=== PATIENT | female | born 1950 | race Caucasian/White ===

== ENCOUNTER 2019-03-11 08:46 | Outpatient (CLI) | payer MEDICARE, OTHER | END 2019-03-11 08:47 | disposition home or self-care (01) | LOC: RT 08:46 | PROVIDERS: ATTEND Orthopaedic Surgery Foot and Ankle Surgery | DX: Z01.810 Encounter for preprocedural cardiovascular examination (principal) | CPT/HCPCS: 93005 ==

== ENCOUNTER 2019-08-07 08:00 | Outpatient (CLI) | payer MEDICARE, OTHER ==
[2019-08-07 12:04] LABS: BASOPHILS % (AUTO) 0.9 %; EOSINOPHILS # (AUTO) 0.3 10^3/uL (0.0-0.7); EOSINOPHILS % (AUTO) 5.7 %; LYMPHOCYTES # (AUTO) 1.7 10^3/uL (1.5-3.5); LYMPHOCYTES % (AUTO) 39.5 %; MEAN CORPUSCULAR HEMOGLOBIN 29.9 pg (27.0-31.0); MEAN CORPUSCULAR HGB CONC 32.6 g/dL (32.0-36.0); MEAN CORPUSCULAR VOLUME 91.7 fL (81.0-99.0); MEAN PLATELET VOLUME 9.9 fL (7.9-10.8); MONOCYTES # (AUTO) 0.5 10^3/uL (0.0-1.0); MONOCYTES % (AUTO) 12.2 %; NEUTROPHILS # (AUTO) 1.8 10^3/uL (1.5-6.6); NEUTROPHILS % (AUTO) 41.7 %; PLT - PLATELET COUNT 306 10^3/uL (130-450); RED BLOOD COUNT 4.69 10^6/uL (4.20-5.40); RED CELL DISTRIBUTION WIDTH 12.6 % (12.0-15.0); WHITE BLOOD COUNT 4.4 x10^3/uL (4.8-10.8)
[2019-08-07 12:25] LABS: ALBUMIN 4.2 g/dL (3.2-5.5); ALBUMIN/GLOBULIN RATIO 1.6 (1.0-2.2); ALKALINE PHOSPHATASE 59 IU/L (42-121); ALT ALANINE AMINOTRANSFERASE 23 IU/L (10-60); AST ASPARTATE AMINOTRANSFERASE 23 IU/L (10-42); BILIRUBIN,TOTAL 0.7 mg/dL (0.2-1.0); BUN - BLOOD UREA NITROGEN 25 mg/dL (6-20); CALCIUM 9.5 mg/dL (8.5-10.3); CARBON DIOXIDE - CO2 25 mmol/L (21-32); CHLORIDE 107 mmol/L (101-111); CHOL/HDL RATIO 2.3 (<4.4); CHOLESTEROL 192 mg/dL; CREATININE 0.7 mg/dL (0.4-1.0); GFR - MDRD 83 (>89); GLUCOSE 84 mg/dL (70-100); HDL CHOLESTEROL 82 mg/dL; LDL CHOLESTEROL,CALCULATED 95 mg/dL; LDL/HDL RATIO 1.2 (<4.4); SODIUM 139 mmol/L (135-145); TOTAL PROTEIN 6.9 g/dL (6.7-8.2); VLDL CHOLESTEROL 15 mg/dL
== END 2019-08-07 23:59 | disposition home or self-care (01) ==
LOC: LAB.WCP 08:00
PROVIDERS: ATTEND Family Medicine
DX: C44.91 Basal cell carcinoma of skin, unspecified (principal); E78.5 Hyperlipidemia, unspecified; R55 Syncope and collapse
CPT/HCPCS: 36415; 80053; 80061; 83721; 84443; 85025

== ENCOUNTER 2019-08-16 07:00 | Outpatient (CLI) | payer MEDICARE, OTHER | END 2019-08-16 23:59 | disposition home or self-care (01) | LOC: LAB.WCP 07:00 | PROVIDERS: ATTEND Family Medicine | DX: R41.3 Other amnesia (principal) | CPT/HCPCS: 36415; 82607; 83921 ==

== ENCOUNTER 2019-08-23 13:25 | Outpatient (CLI) | payer MEDICARE, OTHER ==
--- NOTE | 2019-09-03 12:14 | DEXA Report ---
Reason: POSTMENOPAUSAL Procedure Date: 08/23/2019 Accession Number: [id number] / [id number] Procedure: DEX - Dexa Spine and/or Hip CPT Code: Final Report FULL RESULT: EXAM: Dexa Spine and/or Hip DATE: 08/23/2019 1:57 PM CLINICAL HISTORY: POSTMENOPAUSAL TECHNIQUE: Dual energy x-ray absorptiometry (DXA) was performed on a Ravenflow System. Regions measured are the AP Spine, femoral neck, and if needed forearm. COMPARISON: None. In accordance with the International Society for Clinical Densitometry (ISCD) guidelines, data from previous exams may be reanalyzed using current recommendations and techniques. This is done to allow a more accurate basis for comparison with the current study. FINDINGS: The data for the lumbar spine is as follows: BMD (g/cm/cm) T-SCORE Z-SCORE REGION L1 0.795 -2.8 -0.9 L2 0.842 -3.0 -1.1 L3 0.950 -2.1 -0.2 L4 0.932 -2.2 -0.3 TOTAL 0.883 -2.5 -0.6 NOTE: All evaluable vertebrae are used for classification The data for the hip is as follows: BMD (g/cm/cm) T-SCORE Z-SCORE REGION Neck 0.844 -1.4 0.4 TOTAL 0.881 -1.0 0.5 NOTE: The femoral neck or total proximal femur, whichever is lowest, is used for classification. IMPRESSION: THE WHO CLASSIFICATION BASED ON THE INTERNATIONAL REFERENCE STANDARD IS OSTEOPOROSIS. THE FRACTURE RISK IS HIGH. RECOMMENDATION: Patients with diagnosis of osteoporosis or osteopenia should have regular bone mineral density assessment. For those eligible for Medicare, routine testing is allowed once every 2 years. Testing frequency can be increased for patients who have rapidly progressing disease or for those who are receiving medical therapy to restore bone mass. COMMENT: World Health Organization (WHO) definitions for osteoporosis and osteopenia: NORMAL BMD: T-score at -1.0 or higher, fracture risk is low OSTEOPENIA BMD: T-score between -1.0 and -2.5, fracture risk is increased. OSTEOPOROSIS BMD: T-score at -2.5 or lower, fracture risk is high. National Osteoporosis Foundation recommends: 1. Obtain adequate dietary calcium (at least 1200 mg per day) and vitamin D (400-800 international units per day). 2. Participate, as appropriate, in regular weightbearing and muscle-strengthening exercise. 3. Avoid tobacco use and reduce alcohol and caffeine intake. 4. For more detailed information see the website at www.NOF.org.
== END 2019-08-23 13:26 | disposition home or self-care (01) ==
LOC: DI 13:25
PROVIDERS: ATTEND Family Medicine
DX: M81.0 Age-related osteoporosis without current pathological fracture (principal); Z78.0 Asymptomatic menopausal state
CPT/HCPCS: 77080

== ENCOUNTER 2019-08-29 12:07 | Outpatient (CLI) | payer MEDICARE, OTHER ==
[~2019-08-29 12:07] MED LIST: GADOBUTROL 10 MMOL/10 ML VIAL ONE
[2019-08-29] MEDS ORDERED: GADOBUTROL 10 MMOL/10 ML VIAL IVP ONE (12:32)
--- NOTE | 2019-08-29 13:48 | MRI Report ---
Reason: MEMORY LOSS Procedure Date: 08/29/2019 Accession Number: [id number] / [id number] Procedure: MRI - Brain W/WO CPT Code: Final Report FULL RESULT: EXAM: MRI BRAIN WITHOUT AND WITH CONTRAST EXAM DATE: 08/29/2019 01:05 PM. CLINICAL HISTORY: 68-year-old presenting with worsening memory loss. Evaluate for intracranial pathology. COMPARISON: None. TECHNIQUE: Multiplanar, multisequence T1-weighted and fluid-sensitive MR sequences of the brain were performed before and after administration of intravenous contrast. Sequences optimized for routine evaluation. Other: None. IV Contrast: 6 mL Gadavist. FINDINGS: Brain Volume: Normal for age. Parenchyma: No acute hemorrhage, mass, or infarct. No white matter lesions identified. No abnormal enhancement. Ventricles/Cisterns: No hydrocephalus. No abnormal extra-axial fluid collection or hemorrhage. Orbits: Changes of right lens replacement. Sella Turcica: The pituitary gland, cavernous sinuses, suprasellar cistern and optic chiasm are unremarkable. IAC: Symmetric and unremarkable. Vasculature: Normal signal flow void is seen in the major arterial structures at the skull base. The dural sinuses are patent and enhance normally. Sinuses: Probable tiny left sphenoid sinus and left maxillary mucosal retention cyst versus polyps. Moderate right mastoid effusion. Bones: No focal pathologic appearing marrow signal changes. Other: None. IMPRESSION: 1. No definite acute intracranial pathology seen; specifically, no acute infarct, acute intracranial hemorrhage, mass, hydrocephalus, or midline shift. No definite abnormal postcontrast enhancement. 2. No definite white matter abnormality seen. 3. Moderate right mastoid effusion. RADIA
== END 2019-08-29 12:08 | disposition home or self-care (01) ==
LOC: DI 12:07
PROVIDERS: ATTEND Family Medicine
DX: R41.3 Other amnesia (principal); H74.8X1 Other specified disorders of right middle ear and mastoid
CPT/HCPCS: 70553; A9585

== ENCOUNTER 2019-09-10 08:00 | Outpatient (CLI) | payer MEDICARE, OTHER ==
[2019-09-10 19:04] LABS: CALCIUM 9.8 mg/dL (8.5-10.3); CREATININE 0.6 mg/dL (0.4-1.0)
== END 2019-09-10 23:59 | disposition home or self-care (01) ==
LOC: LAB.WCP 08:00
PROVIDERS: ATTEND Family Medicine
DX: M81.0 Age-related osteoporosis without current pathological fracture (principal); R41.3 Other amnesia
CPT/HCPCS: 36415; 80048; 82306

== ENCOUNTER 2020-08-20 08:00 | Outpatient (CLI) | payer MEDICARE, OTHER ==
[2020-08-20 13:36] LABS: BASOPHILS % (AUTO) 0.5 %; EOSINOPHILS # (AUTO) 0.3 10^3/uL (0.0-0.7); EOSINOPHILS % (AUTO) 6.8 %; HGB - HEMOGLOBIN 13.8 g/dL (12.0-16.0); LYMPHOCYTES # (AUTO) 1.6 10^3/uL (1.5-3.5); LYMPHOCYTES % (AUTO) 37.2 %; MEAN CORPUSCULAR HEMOGLOBIN 29.8 pg (27.0-31.0); MEAN CORPUSCULAR HGB CONC 32.5 g/dL (32.0-36.0); MEAN CORPUSCULAR VOLUME 91.6 fL (81.0-99.0); MEAN PLATELET VOLUME 9.9 fL (7.9-10.8); MONOCYTES # (AUTO) 0.6 10^3/uL (0.0-1.0); MONOCYTES % (AUTO) 13.2 %; NEUTROPHILS # (AUTO) 1.8 10^3/uL (1.5-6.6); NEUTROPHILS % (AUTO) 42.1 %; PLT - PLATELET COUNT 287 10^3/uL (130-450); RED BLOOD COUNT 4.63 10^6/uL (4.20-5.40); RED CELL DISTRIBUTION WIDTH 12.8 % (12.0-15.0); WHITE BLOOD COUNT 4.3 x10^3/uL (4.8-10.8)
[2020-08-20 14:22] LABS: ALBUMIN 4.2 g/dL (3.2-5.5); ALBUMIN/GLOBULIN RATIO 1.9 (1.0-2.2); ALKALINE PHOSPHATASE 59 IU/L (42-121); ALT ALANINE AMINOTRANSFERASE 21 IU/L (10-60); AST ASPARTATE AMINOTRANSFERASE 25 IU/L (10-42); BILIRUBIN,TOTAL 0.7 mg/dL (0.2-1.0); BUN - BLOOD UREA NITROGEN 21 mg/dL (6-20); CALCIUM 9.7 mg/dL (8.5-10.3); CARBON DIOXIDE - CO2 26 mmol/L (21-32); CHLORIDE 104 mmol/L (101-111); CHOL/HDL RATIO 2.3 (<4.4); CHOLESTEROL 198 mg/dL; CREATININE 0.6 mg/dL (0.4-1.0); GLUCOSE 92 mg/dL (70-100); HDL CHOLESTEROL 87 mg/dL; LDL CHOLESTEROL,CALCULATED 100 mg/dL; LDL/HDL RATIO 1.1 (<4.4); TOTAL PROTEIN 6.4 g/dL (6.7-8.2); VLDL CHOLESTEROL 11 mg/dL
== END 2020-08-20 23:59 | disposition home or self-care (01) ==
LOC: LAB.WCP 08:00
PROVIDERS: ATTEND Internal Medicine
DX: M81.0 Age-related osteoporosis without current pathological fracture (principal); E78.5 Hyperlipidemia, unspecified; C50.919 Malignant neoplasm of unspecified site of unspecified female breast; Z13.29 Encounter for screening for other suspected endocrine disorder
CPT/HCPCS: 36415; 80053; 80061; 83721; 84443; 85025

== ENCOUNTER 2020-09-07 08:00 | Outpatient (CLI) | payer MEDICARE, OTHER | END 2020-09-07 23:59 | disposition home or self-care (01) | LOC: LAB.WCP 08:00 | PROVIDERS: ATTEND Internal Medicine | DX: C50.919 Malignant neoplasm of unspecified site of unspecified female breast (principal) | CPT/HCPCS: 36415; 86304 ==

== ENCOUNTER 2021-07-27 08:00 | Outpatient (CLI) | payer MEDICARE, OTHER ==
[2021-07-27 12:05] LABS: BASOPHILS % (AUTO) 0.7 %; EOSINOPHILS # (AUTO) 0.2 10^3/uL (0.0-0.7); EOSINOPHILS % (AUTO) 4.2 %; HCT - HEMATOCRIT 45.4 % (37.0-47.0); HGB - HEMOGLOBIN 14.8 g/dL (12.0-16.0); LYMPHOCYTES # (AUTO) 2.2 10^3/uL (1.5-3.5); LYMPHOCYTES % (AUTO) 38.1 %; MEAN CORPUSCULAR HEMOGLOBIN 29.6 pg (27.0-31.0); MEAN CORPUSCULAR HGB CONC 32.6 g/dL (32.0-36.0); MEAN CORPUSCULAR VOLUME 90.8 fL (81.0-99.0); MEAN PLATELET VOLUME 9.9 fL (7.9-10.8); MONOCYTES # (AUTO) 0.6 10^3/uL (0.0-1.0); MONOCYTES % (AUTO) 11.1 %; NEUTROPHILS # (AUTO) 2.6 10^3/uL (1.5-6.6); NEUTROPHILS % (AUTO) 45.5 %; PLT - PLATELET COUNT 330 10^3/uL (130-450); RED CELL DISTRIBUTION WIDTH 12.9 % (12.0-15.0); WHITE BLOOD COUNT 5.7 x10^3/uL (4.8-10.8)
[2021-07-27 12:23] LABS: ALBUMIN 4.6 g/dL (3.2-5.5); ALBUMIN/GLOBULIN RATIO 1.7 (1.0-2.2); ALKALINE PHOSPHATASE 57 IU/L (42-121); ALT ALANINE AMINOTRANSFERASE 22 IU/L (10-60); AST ASPARTATE AMINOTRANSFERASE 25 IU/L (10-42); BILIRUBIN,TOTAL 0.7 mg/dL (0.2-1.0); BUN - BLOOD UREA NITROGEN 23 mg/dL (6-20); CALCIUM 9.8 mg/dL (8.5-10.3); CARBON DIOXIDE - CO2 27 mmol/L (21-32); CHLORIDE 101 mmol/L (101-111); CHOL/HDL RATIO 2.5 (<4.4); CHOLESTEROL 221 mg/dL; CREATININE 0.7 mg/dL (0.4-1.0); GFR - MDRD 83 (>89); GLUCOSE 105 mg/dL (70-100); HDL CHOLESTEROL 90 mg/dL; LDL CHOLESTEROL,CALCULATED 113 mg/dL; LDL/HDL RATIO 1.3 (<4.4); POTASSIUM 4.3 mmol/L (3.5-5.0); SODIUM 136 mmol/L (135-145); TOTAL PROTEIN 7.3 g/dL (6.7-8.2); TRIGLYCERIDES 89 mg/dL; VLDL CHOLESTEROL 18 mg/dL
[2021-07-27 12:25] LABS: THYROID STIMULATING HORMONE 2.39 uIU/mL (0.34-5.60)
== END 2021-07-27 23:59 ==
LOC: LAB.WCP 08:00
PROVIDERS: ATTEND Physician Assistant Medical
DX: M81.0 Age-related osteoporosis without current pathological fracture (principal); E78.5 Hyperlipidemia, unspecified; Z78.0 Asymptomatic menopausal state
CPT/HCPCS: 36415; 80053; 80061; 83721; 84443; 85025

== ENCOUNTER 2021-08-04 09:32 | Outpatient (CLI) | payer MEDICARE, OTHER ==
--- NOTE | 2021-08-04 15:12 | XRAY Report ---
PROCEDURE: Ribs 2 View LT INDICATIONS: RIB DISORDER TECHNIQUE: 3 views of the left ribs were acquired. COMPARISON: None FINDINGS: Surgical changes and devices: Surgical clips are noted in the left breast. Bones and chest wall: No acute fractures or dislocations. No suspicious bony lesions. Overlying so ft tissues appear unremarkable. Lungs and pleura: The visualized lung appears clear. No pleural effusions or pneumothorax are visib le. IMPRESSION: Left ribs without acute fracture or dislocation. Visualized portions of the lungs are clear. Reviewed by: Kole Jackson MD on 08/04/2021 3:10 PM PST Approved by: Kole Jackson MD on 08/04/2021 3:10 PM PST Station ID: [id number]
== END 2021-08-04 09:33 | disposition home or self-care (01) ==
LOC: DI.N 09:32
PROVIDERS: ATTEND Physician Assistant Medical
DX: M89.9 Disorder of bone, unspecified (principal); Z85.3 Personal history of malignant neoplasm of breast

== ENCOUNTER 2021-09-08 13:34 | Outpatient (CLI) | payer MEDICARE, OTHER ==
--- NOTE | 2021-09-08 15:49 | XRAY Report ---
PROCEDURE: Hand 3 View BILAT INDICATIONS: BILATERAL HAND PX TECHNIQUE: 3 views of the bilateral hand(s) acquired. COMPARISON: None. FINDINGS: BONES: Right: Joint space narrowing of the distal radioulnar articulation with osteophytosis. No acute, disp laced fracture or dislocation. The carpal bones are normally aligned. Left: Mild to moderate arthrosis of the first carpometacarpal articulation with joint space loss and osteophytosis. No acute, displaced fracture or dislocation. The carpal bones are normally aligned. SOFT TISSUES: No acute abnormality. IMPRESSION: 1.No acute osseous abnormality. Reviewed by: Derek Cheng MD on 09/08/2021 3:48 PM PST Approved by: Derek Cheng MD on 09/08/2021 3:48 PM [facility] Station ID: [id number]
== END 2021-09-08 13:35 | disposition home or self-care (01) ==
LOC: DI.N 13:34
PROVIDERS: ATTEND Physician Assistant Medical
DX: M79.641 Pain in right hand (principal)

== ENCOUNTER 2022-04-11 08:00 | Outpatient (CLI) | payer MEDICARE, OTHER ==
[2022-04-14 06:10] LABS: HSV-1 DNA Positive (Negative); HSV-2 DNA Negative (Negative)
== END 2022-04-11 23:59 | disposition home or self-care (01) ==
LOC: LAB.R 08:00
PROVIDERS: ATTEND Obstetrics & Gynecology
DX: A60.00 Herpesviral infection of urogenital system, unspecified (principal)
CPT/HCPCS: 87529

== ENCOUNTER 2022-04-11 09:42 | Outpatient (CLI) | payer MEDICARE, OTHER ==
[2022-04-14 19:07] LABS: HSV 1 IGG TYPE SPEC <0.91 index (0.00-0.90); HSV 2 IGG SUPPLEMENTAL TEST Negative (Negative); HSV 2 IGG TYPE SPEC 2.08 index (0.00-0.90)
== END 2022-04-11 09:43 | disposition home or self-care (01) ==
LOC: LAB 09:42
PROVIDERS: ATTEND Obstetrics & Gynecology
DX: A60.00 Herpesviral infection of urogenital system, unspecified (principal)
CPT/HCPCS: 86695; 86696; 87529

== ENCOUNTER 2022-08-08 12:50 | Outpatient (CLI) | payer MEDICARE, OTHER ==
--- NOTE | 2022-08-08 14:59 | XRAY Report ---
PROCEDURE: Skull Complete INDICATIONS: BONY EXOSTOSIS TECHNIQUE: 4 view(s) of the skull acquired. COMPARISON: MRI brain 08/29/2019 FINDINGS: Bones: No fractures. No suspicious bony lesions. Visualized sinuses appear clear. Soft tissues: No soft tissue calcifications. No suspicious soft tissue densities. IMPRESSION: No definitive osseous abnormality. If concern persists, CT is recommended. Reviewed by: María Elena Clark MD on 08/08/2022 2:58 PM PST Approved by: María Elena Clark MD on 08/08/2022 2:58 PM PST Station ID: [id number]
== END 2022-08-08 12:51 | disposition home or self-care (01) ==
LOC: DI 12:50
PROVIDERS: ATTEND Physician Assistant Medical
DX: M89.9 Disorder of bone, unspecified (principal)

== ENCOUNTER 2022-10-11 09:23 | Outpatient (CLI) | payer MEDICARE, OTHER ==
--- NOTE | 2022-10-11 17:20 | XRAY Report ---
PROCEDURE: Chest 2 View X-Ray INDICATIONS: BRONCHITIS,ACUTE TECHNIQUE: 2 views of the chest were acquired. COMPARISON: None. FINDINGS: Surgical changes and devices: Surgical clips are seen in left breast. Lungs and pleura: No pleural effusions or pneumothorax. Emphysematous changes are seen. Increased br onchovascular markings in bilateral hilar region are seen with mild bronchial wall thickening. No def inite focal infiltrate. Mediastinum: Mediastinal contours are normal. Heart size is normal. Bones and chest wall: No suspicious bony abnormalities. Soft tissues appear unremarkable. IMPRESSION: COPD and suggestion of reactive airway disease such as bronchitis or asthma. No focal infiltrate, ple ural effusion or pneumothorax. Reviewed by: Cody Kinney MD on 10/11/2022 5:19 PM PDT Approved by: Cody Kinney MD on 10/11/2022 5:19 PM PDT Station ID: [id number]
== END 2022-10-11 09:24 | disposition home or self-care (01) ==
LOC: DI 09:23
PROVIDERS: ATTEND Family Medicine
DX: J20.9 Acute bronchitis, unspecified (principal); J44.9 Chronic obstructive pulmonary disease, unspecified